=== PATIENT | male | born 1990 | race American Indian/Alaskan Native ===

== ENCOUNTER 2021-10-22 03:44 | Emergency (ER) | payer SELFPAY ==
--- NOTE | 2021-10-22 04:38 | XRay Report ---
CHEST 2 VIEWS INDICATION / CLINICAL INFORMATION: Chest Pain. FINDINGS: SUPPORT DEVICES: None. HEART / MEDIASTINUM: No significant abnormality. LUNGS / PLEURA: No significant pulmonary or pleural abnormality. No pneumothorax. ADDITIONAL FINDINGS: No significant additional findings. IMPRESSION: 1. No acute findings. Signer Name: Farhat Jim MD Signed: 10/22/2021 4:33 AM Workstation Name: [id number]
[2021-10-22 05:30] LABS: Basophils % (Auto) 0.2 % (0.0-1.8); Eosinophils % (Auto) 0.2 % (0.0-4.3); Hematocrit 43.2 % (35.5-45.6); Hemoglobin 13.6 gm/dl (11.8-15.2); Lymphocytes # (Auto) 2.5 K/mm3 (1.2-5.4); Lymphocytes % (Auto) 24.8 % (13.4-35.0); Mean Corpuscular HGB Conc 32 % (32-34); Mean Corpuscular Volume 74 fl (84-94); Monocytes # (Auto) 0.8 K/mm3 (0.0-0.8); Monocytes % (Auto) 7.8 % (0.0-7.3); Platelet Count 319 K/mm3 (140-440); Red Blood Count 5.84 M/mm3 (3.65-5.03); Red Cell Distribution Width 14.6 % (13.2-15.2)
[2021-10-22 05:44] LABS: Alanine Aminotransferase 28 units/L (7-56); Albumin 4.8 g/dL (3.9-5); BUN/Creatinine Ratio 8; Blood Urea Nitrogen 8 mg/dL (9-20); Calcium 9.9 mg/dL (8.4-10.2); Hemolysis Index 7
--- NOTE | 2021-10-22 09:53 | Electrocardiograph Report ---
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
--- NOTE | 2021-10-22 10:17 | Emergency Department Report ---
ED General Adult HPI - General Chief complaint: Chest Pain Stated complaint: CHEST PAIN/HBP Time Seen by Provider: 10/22/21 10:07 Source: patient Mode of arrival: Ambulatory Limitations: No Limitations - History of Present Illness Initial comments: 31-year-old male with no significant past medical history reports to the ER with complaints of chest pain and elevated blood pressure with weakness. Patient reports his chest pain has been intermittent since Saturday. Patient reports a feeling of tightness. Patient denies any heart history and no history of hypertension. Patient rate comes and goes with no radiation to any jaw or arms. Patient denies any increase in stress recently. Patient denies any shortness of breath dizziness headaches. Patient currently denies any active chest pain at this moment 1016am. No other acute signs or symptoms reported. - Related Data Allergies Allergy/AdvReac Type Severity Reaction Status Date / Time No Known Allergies Allergy Unverified 10/22/21 04:07 ED Review of Systems ROS: Stated complaint: CHEST PAIN/HBP Other details as noted in HPI Comment: All other systems reviewed and negative Constitutional: weakness Respiratory: denies: shortness of breath, SOB with exertion Cardiovascular: chest pain Neurological: denies: headache, numbness ED Past Medical Hx - Past Medical History Previous Medical History?: No - Surgical History Past Surgical History?: No - Social History Smoking Status: Never Smoker Substance Use Type: None ED Physical Exam - General Limitations: No Limitations General appearance: alert, in no apparent distress - Head Head exam: Present: atraumatic, normocephalic - Eye Eye exam: Present: normal appearance - ENT ENT exam: Present: mucous membranes moist - Neck Neck exam: Present: normal inspection - Respiratory Respiratory exam: Present: normal lung sounds bilaterally. Absent: respiratory distress - Cardiovascular Cardiovascular Exam: Present: regular rate, normal rhythm, normal heart sounds. Absent: systolic murmur, diastolic murmur, rubs, gallop - GI/Abdominal GI/Abdominal exam: Present: soft, normal bowel sounds - Rectal Rectal exam: Present: deferred - Extremities Exam Extremities exam: Present: normal inspection - Back Exam Back exam: Present: normal inspection - Neurological Exam Neurological exam: Present: alert, oriented X3 - Psychiatric Psychiatric exam: Present: normal affect, normal mood - Skin Skin exam: Present: warm, dry, intact, normal color. Absent: rash ED Course Vital Signs 10/22/21 10/22/21 04:07 13:27 Temperature 98.1 F 98.6 F Pulse Rate 84 73 Respiratory 18 16 Rate Blood Pressure 140/84 Blood Pressure 139/84 [Right] O2 Sat by Pulse 98 100 Oximetry ED Medical Decision Making - Lab Data Result diagrams: 10/22/21 04:45 10/22/21 04:45 - EKG Data EKG shows normal: sinus rhythm Rate: normal - EKG Data Interpretation: other (See EKG report for detail results) - Radiology Data Radiology results: report reviewed, image reviewed [facility] [address] [place] [address] XRay Report Signed Patient: HUONG MENDOZA MR#: [id number] 4 : 1990 Acct:[id number] Age/Sex: 31 / M ADM Date: 10/22/21 Loc: ED Attending Dr: Ordering Physician: ALEX CALDERON MD Date of Service: 10/22/21 Procedure(s): XR chest routine 2V Accession Number(s): [id number] cc: ALEX CALDERON MD Fluoro Time In Minutes: CHEST 2 VIEWS INDICATION / CLINICAL INFORMATION: Chest Pain. FINDINGS: SUPPORT DEVICES: None. HEART / MEDIASTINUM: No significant abnormality. LUNGS / PLEURA: No significant pulmonary or pleural abnormality. No pneumothorax. ADDITIONAL FINDINGS: No significant additional findings. IMPRESSION: 1. No acute findings. Signer Name: Farhat Jim MD Signed: 10/22/2021 4:33 AM Workstation Name: [id number] Transcribed By: Dictated By: Farhat Jim MD Electronically Authenticated By: Farhat Jim MD Signed Date/Time: 10/22/21432 DD/ 2 TD/TT: - Medical Decision Making 31-year-old male no past medical history reports to the ER with chest pain and weakness intermittently since Saturday. No current chest pain on initial assessment. No acute clinical findings on physical exam. CBC CMP with no acute process unremarkable labs. Chest x-ray with no acute process noted . Troponin negative. Patient updated on labs and imaging report. Patient informed to follow-up primary care services. Patient informed if symptoms are to get worse to report back to the ER. Patient agrees with plan of care and verbalized understanding. Vital Signs 10/22/21 10/22/21 04:07 13:27 Temperature 98.1 F 98.6 F Pulse Rate 84 73 Respiratory 18 16 Rate Blood Pressure 140/84 Blood Pressure 139/84 [Right] O2 Sat by Pulse 98 100 Oximetry Lab Results 10/22/21 10/22/21 10/22/21 Range/Units 04:45 04:45 10:30 WBC 10.0 (4.5-11.0) K/mm3 RBC 5.84 H (3.65-5.03) M/mm3 Hgb 13.6 (11.8-15.2) gm/dl Hct 43.2 (35.5-45.6) % MCV 74 L (84-94) fl MCH 23 L (28-32) pg MCHC 32 (32-34) % RDW 14.6 (13.2-15.2) % Plt Count 319 (140-440) K/mm3 Lymph % (Auto) 24.8 (13.4-35.0) % [place] % (Auto) 7.8 H (0.0-7.3) % Eos % (Auto) 0.2 (0.0-4.3) % Baso % (Auto) 0.2 (0.0-1.8) % Lymph # (Auto) 2.5 (1.2-5.4) K/mm3 [place]lin # (Auto) 0.8 (0.0-0.8) K/mm3 Eos # (Auto) 0.0 (0.0-0.4) K/mm3 Baso # (Auto) 0.0 (0.0-0.1) K/mm3 Seg Neutrophils % 67.0 (40.0-70.0) % Seg Neutrophils # 6.7 (1.8-7.7) K/mm3 Sodium 140 (137-145) mmol/L Potassium 4.4 (3.6-5.0) mmol/L Chloride 101.9 (98-107) mmol/L Carbon Dioxide 26 (22-30) mmol/L Anion Gap 17 mmol/L BUN 8 L (9-20) mg/dL Creatinine 1.0 (0.8-1.3) mg/dL Estimated GFR > 60 ml/min BUN/Creatinine Ratio 8 % Glucose 97 (75-100) mg/dL Calcium 9.9 (8.4-10.2) mg/dL Total Bilirubin 0.40 (0.1-1.2) mg/dL AST 18 (5-40) units/L ALT 28 (7-56) units/L Alkaline Phosphatase 72 (35-129) units/L Troponin T < 0.010 (0.00-0.029) ng/mL Total Protein 7.6 (6.3-8.2) g/dL Albumin 4.8 (3.9-5) g/dL Albumin/Globulin Ratio 1.7 % Critical care attestation.: If time is entered above; I have spent that time in minutes in the direct care of this critically ill patient, excluding procedure time. ED Disposition Clinical Impression: Chest pain Qualifiers: Chest pain type: other chest pain Qualified Code(s): R07.89 - Other chest pain Disposition: 01 HOME / SELF CARE / HOMELESS Is pt being admited?: No Condition: Stable Instructions: Chest Wall Pain, [id number], Nonspecific Chest Pain, Adult Referrals: МАРИЯ SEAY MD [Primary Care Provider] - 3-5 Days [facility] [Outside] - 3-5 Days [facility] [Outside] - 3-5 Days [facility] [Outside] - 3-[address] [facility] [Outside] - 3-5 Days Forms: Work/School Release Form(ED)
[2021-10-22 13:29] VITALS: BP 139/84
== END 2021-10-22 13:27 | disposition home or self-care (01) ==
LOC: ED 03:44
DX: R07.89 Other chest pain (principal); R53.1 Weakness; Z79.899 Other long term (current) drug therapy
CPT/HCPCS: 36415; 71046; 80053; 84484; 85025; 93005; 99283